=== PATIENT | female | born 1945 | race Caucasian/White ===

== ENCOUNTER 2022-01-19 12:03 | Emergency (ER) | payer OTHER, BC ==
[~2022-01-19] VITALS: Ht 165.1 cm; Wt 77.1 kg
[2022-01-19 12:03] VITALS: BP_SYST 146
[2022-01-19] MEDS ORDERED: NIRM1TAB PO (12:30)
== END 2022-01-19 12:49 | disposition home or self-care (01) ==
LOC: SED 12:03
DX: U07.1 COVID-19 (principal); R05.9 Cough, unspecified; J02.9 Acute pharyngitis, unspecified; Z79.899 Other long term (current) drug therapy
CPT/HCPCS: 99283